=== PATIENT | female | born 1985 | race Caucasian/White ===

== ENCOUNTER 2020-08-28 09:07 | Outpatient (RCR) | payer BC, SELFPAY ==
[2017-02-09 14:12] VITALS: BMI 29.4
== END 2020-10-29 23:59 ==
LOC: IMMUN 09:07
PROVIDERS: PCP Physician Assistant; Visit Provider Family Medicine
DX: Z23 Encounter for immunization (principal)
CPT/HCPCS: 0001A; 0002A; 91300

== ENCOUNTER 2023-11-11 08:58 | Emergency (ER) | payer BC, SELFPAY ==
[2023-11-11 08:58] VITALS: BP 134/92; PULSE 89; RESP 16; TEMP 36.5; O2SAT 100; BMI 27.2
--- NOTE | 2023-11-11 09:04 | EKG12_ITS ---
Test Reason : PALPITATIONS Blood Pressure : / mmHG Vent. Rate : 077 BPM Atrial Rate : 077 BPM P-R Int : 158 ms QRS Dur : 088 ms QT Int : 370 ms P-R-T Axes : 054 049 066 degrees QTc Int : 418 ms Normal sinus rhythm Normal ECG Confirmed by RADHA OLMSTEAD, MICHAEL ([id number]), editor trade journal VERONICA PAL ([id number]) on 11/15/2023 11:16:32 AM Referred By: Confirmed By:MICHAEL GARCIA MD
[2023-11-11 09:35] VITALS: O2SAT 97
[2023-11-11 09:46] LABS: Absolute Lymphocyte Count 1.62 X10^3/uL (0.83-4.51); Basophil# 0.01 X10^3/uL; Basophil% 0.1 % (0-1); Eosinophil# 0.08 X10^3/uL; Eosinophils% 1.1 % (0-5); Hematocrit 43.2 % (37-47); Hemoglobin 14.9 g/dL (12.0-15.0); Lymphocyte # 1.62 X10^3/ul (0.83-4.51); Lymphocyte % 22.6 % (19-41); Mean Corp Hgb Conc 34.5 g/dL (32-36); Mean Corpuscular Hgb 29.7 pg (27.0-32.0); Mean Corpuscular Volume 86.1 fL (81-99); Mean Platelet Vol. 9.4 fl (6.2-12.0); Monocyte# 0.42 X10^3/uL; Monocyte% 5.9 % (0-10); NRBC Flagged by Analyzer 0 % (0-5); Neutrophil # 5.01 X10^3/uL (2.7-7.7); Platelet Count 289 K/mm3 (150-450); RBC Distribution Width CV 12.1 % (11.6-14.6); RBC Distribution Width SD 37.8 fl (35.1-43.9); Red Blood Count 5.02 M/mm3 (4.2-5.4); White Blood Count 7.2 K/mm3 (4.4-11.0)
--- NOTE | 2023-11-11 09:52 | RAD_ITS ---
STUDY: X-RAY CHEST REASON FOR EXAM: Female, 38 years old. Chest pain TECHNIQUE: Single AP portable view of the chest. COMPARISON: None. FINDINGS: EKG electrodes are seen. The lungs are clear and expanded. There is no demonstrated pleural abnormality. Normal size heart. Normal mediastinum and helio. Normal visualized pulmonary arteries. Normal visualized aortic arch and descending thoracic aorta. Normal visualized thoracic spine. Normal visualized ribs, clavicles, and shoulders. There is no demonstrated abnormality of the visualized soft tissue structures of the upper abdomen. RAD/Chest 1 View (Portable) IMPRESSION: Normal x-ray examination of the chest. Electronically Signed: Michael Hardy MD at 10:09 EDT ,
[2023-11-11 10:05] LABS: Anion Gap 8 (5-15); BUN 14 mg/dL (7-18); BUN/Creat Ratio 15.3 RATIO (10-20); Calcium,Total 9.1 mg/dL (8.5-10.1); Chloride 106 mmol/L (98-107); Creatinine, Serum 0.92 mg/dL (0.55-1.02); EST Glomerular Filtration Rate 73 mL/min (>60); Est Glom Filt Rate - Afr Amer 89 mL/min (>60); Estimated Creatinine Clearance 99.89 ml/min; Glucose 109 mg/dL (74-106); Potassium 4.8 mmol/L (3.5-5.1); Sodium Level 140 mmol/L (136-145); Troponin-I HS (w/2H Reflex) < 3 pg/mL (3.0-54.0)
--- NOTE | 2023-11-11 10:49 | EDS_ITS ---
HPI History of Present Illness Chief Complaint: Shortness of Breath Informant: patient Narrative Narrative: For the past week patient has been having daily, random episodes that last a minute or 2, or lasts, of palpitations that feel like skipping associated with dyspnea, chest heaviness, and lightheadedness. She has had near syncope a couple times but has never lost consciousness. She has had some headaches that feel like migraines associated with these but as of the last couple days she has not. She denies any focal neurologic symptoms. She usually drinks coffee in the morning but since she started having these, she discontinued that, but she is still having the episodes. She denies any other stimulant use or illicit drugs. [facility] Medical History (Updated 11/11/23 @ 13:[address] Barry Fuchs MD) GERD (gastroesophageal reflux disease) Hypothyroidism Home Medications ?Medication ?Instructions ?Recorded ?Last Taken ?Type levothyroxine 125 mcg tablet 125 mcg PO DAILY 02/09/17 02/08/17 07:00 History 1 tab omeprazole magnesium 20 mg 20 mg PO DAILY 02/09/17 02/07/17 History tablet,delayed release (Prilosec 1 tab OTC) vits,calcium no.78-iron 1 tab PO DAILY 02/09/17 02/08/17 22:00 History fumarate-folic acid 29 mg-1 mg 1 tab tablet (Prenatabs FA) ibuprofen 400 mg tablet 800 mg (2 x 400 mg) PO Q8H PRN PRN 02/10/17 Unknown Rx Pain ##30 Allergy/AdvReac Type Severity Reaction Status Date / Time adhesive tape Allergy Itching Verified 11/11/23 08:58 Latex, Natural Rubber Allergy Hives Verified 11/11/23 08:58 morphine Allergy Itching Verified 11/11/23 08:58 Social History (Updated 11/11/23 @ 10:[address] Barry Fuchs MD) Smoking Status: Never smoker substance use type: does not use ROS ROS ED Constitutional Constitutional ED: Denies chills or fever(s) Eyes Eyes: Denies change in vision or diplopia ENT ENT ED: Denies rhinorrhea or sore throat Cardiovascular Cardiovascular: Reports chest pain, lightheadedness and palpitations; Denies syncope Respiratory/Chest Respiratory/Chest: Reports dyspnea; Denies cough Gastrointestinal Gastrointestinal: Denies abdominal pain, diarrhea, nausea or vomiting Genitourinary Genitourinary ED: Denies dysuria or hematuria Musculoskeletal Musculoskeletal: Denies back pain or neck pain Integumentary Denies abscess or rash Neurologic Neurologic: Denies headache(s), paresthesias or weakness Psychiatric Psychiatric: Denies anxiety or suicidal thoughts EXAM Physical Exam Const Vital Signs: 11/11/23 08:58 11/11/23 09:35 11/11/23 10:58 Temperature 97.7 F L Temperature Source Temporal Pulse Rate 89 69 Respiratory Rate 16 14 Respiratory Effort Short of Breath Labored Respiratory Pattern Normal Blood Pressure 134/92 H 113/82 H Blood Pressure Mean 106 92 Pulse Ox 100 99 Oxygen Delivery Method Room Air Room Air Room Air 11/11/23 12:00 Temperature Temperature Source Pulse Rate 70 Respiratory Rate 16 Respiratory Effort Respiratory Pattern Blood Pressure 109/74 Blood Pressure Mean 85 Pulse Ox 99 Oxygen Delivery Method Room Air Positive well nourished and well developed General Appearance ED: well developed and NAD HEENT Reports moist mucous membranes normocephalic and atraumatic Eyes PERRL and EOMs intact bilaterally Neck full ROM and supple Resp normal respiratory effort and clear to auscultation bilaterally Cardio regular rate, regular rhythm and no murmurs GI non-tender and non-distended Auscultation: normoactive bowel sounds Palpation: soft Back/Spine no CVA tenderness General Back: other FROM Extremity normal to inspection General Extremety ED: Negative for edema, pulses abnormal or tenderness General Extremity: Negative for edema or pulses abnormal Neuro oriented x3, CN's II-XII intact bilaterally and no sensory deficits noted Sensorium / Orientation: awake and alert Motor Exam: strength 5/5 throughout Skin no rashes or lesions noted and no wounds Heart Score History: Slightly/Non-Suspicious ECG: Normal Age: </= 45 years Risk Factors: No Risk Factors Troponin: </= Normal Limit Score: 0 MDM MDM MDM Narrative Medical decision making narrative: Patient was observed here on the monitor she had no symptoms or telemetry events. Her labs are normal I reviewed them as well as her 1 view chest x-ray which is normal. She has 2 sets of troponins that are both negative, less than 3 for a delta of 0. She is very low risk for vascular disease and I do not think she is having acute coronary syndrome. I think this is more likely something electrical such as PVCs, dysrhythmias. I am contacting respiratory to have them place a Holter on her, and I will have her follow-up with cardiology for results, I think a 24-hour be reasonable since she has been having symptoms daily. Lab Data Attestation: I reviewed the patient's lab results. Labs: Laboratory Results - last 24 hr 11/11/23 11/11/23 09:30 11:53 WBC 7.2 RBC 5.02 Hgb 14.9 Hct 43.2 MCV 86.1 MCH 29.7 MCHC 34.5 RDW Std Deviation 37.8 RDW Coeff of Yosef 12.1 Plt Count 289 MPV 9.4 Immature Gran % (Auto) 0.300 Neut % (Auto) 70.0 Lymph % (Auto) 22.6 Upson % (Auto) 5.9 Eos % (Auto) 1.1 Baso % (Auto) 0.1 Absolute Neuts (auto) 5.0 Absolute Lymphs (auto) 1.62 Nucleated RBC % 0 Sodium 140 Potassium 4.8 Chloride 106 Carbon Dioxide 26.0 Anion Gap 8 BUN 14 Creatinine 0.92 Estim Creat Clear Calc 99.89 Est GFR (MDRD) Af Amer 89 Est GFR (MDRD) Non-Af 73 BUN/Creatinine Ratio 15.3 Glucose 109 H Calcium 9.1 Troponin I High Sens < 3 L < 3 L Radiography Diagnostic Testing: Clinical Impression(s) from Imaging Studies Chest X-Ray 11/11/23 09:52 IMPRESSION: Normal x-ray examination of the chest. Electronically Signed: Michael Hardy MD at 10:09 EDT Reading Location ID and State: [facility] / [place] , Service support , Rhythm Strip Rhythm Strip: Sinus Rhythm Rate: 77 Ectopy: None EKG Initial EKG: Attestation: I personally reviewed and interpreted this EKG as follows: Interpretation: Sinus Rhythm and No Acute Injury Pattern Comments: nml EKG Prior EKG tracings: not available for review Prior: No Prior Discharge Plan Triage Chief Complaint: Shortness of Breath ED Provider: Barry Fuchs Dx/Rx/DC Orders Clinical Impression: Intermittent palpitations, Intermittent chest pain Instructions: ED Holter Monitor, ED Palpitations Prescriptions: No Action levothyroxine 125 MCG tablet 125 mcg PO DAILY omeprazole magnesium [Prilosec OTC] 20 MG tablet,delayed release (DR/EC) 20 mg PO DAILY [id number] [Prenatabs FA] 1 TABLET tablet 1 tab PO DAILY ibuprofen 400 MG tablet 800 mg PO Q8H PRN PRN (Reason: Pain) Qty: 30 0RF Primary Care Provider: Mickey Betancourt Referrals: Joseph Bangura MD [Med Staff - Active Staff] - (Call for appointment to be seen after you turn the Holter monitor in.) Mickey Betancourt PA [Primary Care Provider] - Print Language: Jamaican Disposition Disposition: Home, Self Care
[2023-11-11 10:58] VITALS: BP 113/82; PULSE 69; RESP 14; O2SAT 99
[2023-11-11 11:44] LABS: Reflex Troponin-HS? (from REC) Y
[2023-11-11 12:00] VITALS: BP 109/74; PULSE 70; RESP 16; O2SAT 99
[2023-11-11 12:22] LABS: Troponin-I HS < 3 pg/mL (3.0-54.0)
[2023-11-11 13:13] VITALS: BP 112/72; PULSE 74; RESP 18; TEMP 36.8; O2SAT 97
== END 2023-11-11 13:14 | disposition home or self-care (01) ==
PROVIDERS: Emergency Provider Emergency Medicine; PCP Physician Assistant; Visit Provider Emergency Medicine
DX: R00.2 Palpitations (principal); R07.9 Chest pain, unspecified
CPT/HCPCS: 71045; 80048; 84484; 85025; 93005; 99284

== ENCOUNTER → 2023-11-11 | Outpatient (CLI) | payer BC, SELFPAY | END | disposition home or self-care (01) | LOC: CVS 13:23 | PROVIDERS: PCP Physician Assistant; Visit Provider Emergency Medicine | DX: R00.2 Palpitations (principal) | CPT/HCPCS: 93225; 93226 ==